=== PATIENT | female | born 1975 | race Caucasian/White ===

== ENCOUNTER 2018-01-31 17:06 | Outpatient (CLI) | payer BC ==
[2018-01-31 18:27] LABS: Hemoglobin 13.9 g/dL (12.0-16.0); Mean Corpuscular HGB CONC 34.6 g/dL (32.0-36.0); Mean Corpuscular Hemoglobin 29.9 pg (27.0-31.0); Mean Corpuscular Volume 86.6 fL (78.0-98.0); Mean Platelet Volume 8.5 fL (7.4-10.4); Platelet Count 253 thou/uL (130-400); RBC Distribution Width 11.8 % (11.5-14.5); Red Blood Cell (RBC) Count 4.65 mill/uL (4.20-5.40); White Blood Cell (WBC) Count 6.4 thou/uL (4.8-10.8)
[2018-01-31 19:04] LABS: BHCG - Serum Negative (NEGATIVE); Pregs Control Background? CLEAR/WHITE (CLR/WHITE); Pregs Control Bar Appear? YES (CONTROL BAR)
== END 2018-01-31 17:07 | disposition home or self-care (01) ==
LOC: LABBT 17:06
PROVIDERS: ATTEND Obstetrics & Gynecology
DX: Z01.812 Encounter for preprocedural laboratory examination (principal); R10.2 Pelvic and perineal pain; N94.89 Other specified conditions associated with female genital organs and menstrual cycle
CPT/HCPCS: 84703; 85027; 86850; 86900; 86901

== ENCOUNTER 2018-02-05 10:04 | Day surgery (SDC) | payer BC ==
[2018-01-31 17:25] VITALS: BMI 29.0
--- NOTE | 2018-02-04 11:18 | HP ---
DATE OF ADMISSION: 02/05/2018 REASON FOR ADMISSION: Recurrent cyst and chronic pelvic pain involving the left ovary. SCHEDULED PROCEDURE: Laparoscopic left salpingo-oophorectomy. HISTORY OF PRESENT ILLNESS: Ms. Chanel is a 43-year-old 3, para with a long history of recurrent cyst on the left ovary. She presented in August with recurrence of that pain and it is pers isted. Ultrasound at that time revealed a complex cyst about 5 cm in greatest diameter with no edmundo rning features for malignancy. The patient desires definitive management with removal. OB AND ELECTRONIC SYSTEMS SECURITY ASSESSMENT HISTORY: x3. Last Pap negative in 2016. PAST MEDICAL HISTORY: None. PAST SURGICAL HISTORY: Kidney stones. ALLERGIES: None. MEDICATIONS: Aygestin and sertraline. SOCIAL HISTORY: Denies tobacco, alcohol, or drug use. FAMILY HISTORY: Noncontributory. REVIEW OF SYSTEMS: Noncontributory. PHYSICAL EXAMINATION: GENERAL: White female. VITAL SIGNS: 5 feet 6 inches, weight 174. BMI 28, blood pressure 112/70, pulse 89, respirations 18. HEENT: Within normal limits. LUNGS: Clear to auscultation bilaterally. HEART: Regular rhythm. BREASTS: No mass bilaterally. ABDOMEN: Soft, nontender, no rebound or guarding. PELVIC: Vulva without lesions or discharge. Cervix parous. Uterus anteverted, 6-week size. Adnexa fullness with tenderness noted on the left. EXTREMITIES: No clubbing, cyanosis or edema. LABORATORY: As noted, negative Pap smear. Imaging was noted with cyst in August. IMPRESSION: Chronic pelvic pain, left lower quadrant with recurrent cyst. PLAN: Patient desires removal of left tube and ovary. We will proceed with aforementioned procedure laparoscopically. The patient understands risks, benefits of procedure including premature ov cyrus failure and persistence of her pain. We will administer appropriate antibiotic prophylaxis.
[2018-02-05] MEDS ORDERED: CeleCOXIB 100 MG CAP ONE (10:36)
[2018-02-05] MEDS ORDERED: Gabapentin 300 MG CAP ONE (10:36)
[2018-02-05] MEDS ORDERED: Famotidine/PF 20 mg/2ml Vial ONE (10:36)
[2018-02-05] MEDS ORDERED: CEFAZOLIN 2 GM/50 ML BAG ONE (10:36)
[2018-02-05] MEDS ORDERED: Bupivacaine HCl 0.5%/Epinephrine 1:200,000/PF 30 ml Vial ONE (11:13)
[2018-02-05] MEDS ORDERED: Fentanyl 100 MCG/2 ML VIAL ONE ×2 (11:21→13:02)
[2018-02-05] MEDS ORDERED: Dexamethasone 20 MG/5 ML VIAL ONE (15:03)
[2018-02-05] MEDS ORDERED: Ketorolac Tromethamine 30 MG/ML VIAL ONE (15:03)
[2018-02-05] MEDS ORDERED: PROPOFOL 200 MG/20 ML VIAL ONE (15:03)
[2018-02-05] MEDS ORDERED: Ondansetron PF 4 MG/2 ML Vial ONE (15:03)
[2018-02-05] MEDS ORDERED: PHENYLEPHRINE-NS 100 MCG/ML 10 ML SYRINGE ONE (15:03)
[2018-02-05] MEDS ORDERED: Glycopyrrolate 0.2 MG/ML 5 ML SYRINGE ONE (15:03)
[2018-02-05] MEDS ORDERED: Lidocaine 1% PF 5 ML VIAL ONE (15:03)
--- NOTE | 2018-02-06 10:41 | OP ---
DATE OF SURGERY: 02/05/2018 PREOPERATIVE DIAGNOSIS: Recurrent left ovarian cyst with chronic pelvic pain. POSTOPERATIVE DIAGNOSIS: Recurrent left ovarian cyst with chronic pelvic pain plus left pelvic endom etriosis and right ovarian fossa and endometriosis. PROCEDURES: 1. Left salpingo-oophorectomy with da Jasvir. 2. Left pelvic peritoneal excision for endometriosis. 3. Right ovarian fossa fulguration with monopolar cautery of endometriosis. SURGEON: Humble Lackey M.D. PICTURE ENGRAVER: Fernanda Clinton D.O. ANESTHESIA: General endotracheal. ESTIMATED BLOOD LOSS: Less than 25 mL. COMPLICATIONS: None. OPERATIVE FINDINGS: 1. Simple cyst, otherwise normal-appearing left ovary with possible small areas of endometriosis on the surface. 2. Obvious endometriotic implant in the left pelvis just lateral to the ureter and uterosacral ligam ent and medial to the vessel great vessels. 3. Right ovarian fossa, small red endometriotic implants fulgurated. DISPOSITION: To the recovery room in good condition. DESCRIPTION OF OPERATIVE PROCEDURE: After obtaining proper informed consent, patient was taken to [facility] operating room where general anesthesia was achieved without difficulty. The patient was prepped a nd draped in dorsal lithotomy in [facility]. Rhodes catheter placed and the bladder drained of cl ear urine. Side hand speculum placed in vagina, cervix identified, grasped with single tooth tenacul um and a Perminova manipulator placed inside. Tenaculum and speculum removed. Welding Process Specialist turned his atten tion to the abdominal portion of procedure. 5 mL of Marcaine injected at the base of umbilicus, 8 mm skin incision made and Veress needle placed in the abdominal cavity. Insufflation carried out with carbon dioxide to a max pressure of 15. An 8 mm trocar was introduced in the umbilicus under direct visualization confirming no injury to the underlying viscera. Right and left lateral da Jasvir ports were placed lateral to the epigastric vessels and an 11 mm technician assistant port in the right upper quadrant . The patient was placed in steep Trendelenburg position and the da Jasvir robot docked. Monopolar s cissors in the right hand and fenestrated bipolar forceps in the left. Findings as noted in the oper ative findings were noted. The left infundibulopelvic ligament was isolated, coagulated and transect ed at the insertion into the ovary. The mesovarian was then coagulated and transected across as well as underneath the mesosalpinx excising through to the level of the insertion of the fallopian tube u ntil the uterus was coagulated, transected, and amputated. This was placed in the cul-de-sac for ret rieval. Area of definite endometriosis was noted in the right pelvis. The ureter was identified and noted to be approximately 3-4 mm medial to this and the great vessel was approximately 20 mm lateral . The area was tented up, the peritoneum incised and approximately 15 x 10 mm area of the peritoneum was excised. There were some areas of bleeding in the subperitoneal area underneath the excision of the endometriosis. Suction irrigation was carried out and these were rendered mostly hemostatic usi ng bipolar fenestrated forceps staying well lateral to the ureter. To achieve excellent hemostasis, Tisseel was applied for affected area and good hemostasis was noted. The area on the right was an ar ea of the ovarian fossa very close to the iliac vessels. Decision made because it is not to excise t he peritoneum but rather just to fulgurate them as they did not appear deep and were very surface bas ed and red. Suction irrigation was carried out to the pelvis and no other abnormalities were noted. The specimen was placed into a specimen retrieval bag, brought in through the technician assistant port and pul led up against this. Instruments were removed and the da Jasvir undocked. Abdomen desufflated of car bon dioxide. The ovary was removed through the 11 mm port with the sac intact and sent for pathologi c analysis. An 8 mm umbilical trocar was reapproximated at the fascia using an 0 Vicryl on a UR5. S kin reapproximated x4 using 4-0 Monocryl with Dermabond. Hulka removed. Rhodes removed. The patient awakened, extubated, and taken to recovery room in good condition.
== END 2018-02-05 15:55 | disposition home or self-care (01) ==
LOC: SDC 10:04
PROVIDERS: ATTEND Obstetrics & Gynecology
PROC: 0UT14ZZ Resection of Left Ovary, Percutaneous Endoscopic Approach (ICD-10-PCS; principal; 2018-02-05)
PROC: 0U544ZZ Destruction of Uterine Supporting Structure, Percutaneous Endoscopic Approach (ICD-10-PCS; principal; 2018-02-05)
PROC: 0UT64ZZ Resection of Left Fallopian Tube, Percutaneous Endoscopic Approach (ICD-10-PCS; principal; 2018-02-05)
DX: N83.292 Other ovarian cyst, left side (principal); N83.12 Corpus luteum cyst of left ovary; N80.3 Endometriosis of pelvic peritoneum; N80.1 Endometriosis of ovary; G89.29 Other chronic pain; R10.2 Pelvic and perineal pain; Z79.899 Other long term (current) drug therapy
CPT/HCPCS: 88305; 96374; J0131; J0670; J1100; J1885; J2001; J2405; J2704; J3010; S0028

== ENCOUNTER 2018-04-18 15:43 | Outpatient (CLI) | payer BC | END 2018-04-18 15:44 | disposition home or self-care (01) | LOC: BICMAMMO 15:43 | PROVIDERS: ATTEND Obstetrics & Gynecology | DX: Z12.31 Encounter for screening mammogram for malignant neoplasm of breast (principal) | CPT/HCPCS: 77063; 77067 ==